=== PATIENT | male | born 1985 | race Caucasian/White ===

== ENCOUNTER → 2017-04-08 | Outpatient (CLI) | payer OTHER ==
[~2017-04-08] MED LIST: GASTROGRAFIN SOLUTION 30ML (Q9963) As Ordered; ISOVUE-370 76% 100ML VIAL (Q9967) As Ordered
== END ==
LOC: M RAD 08:59
DX: Z85.47 Personal history of malignant neoplasm of testis (principal)
CPT/HCPCS: Q9963

== ENCOUNTER → 2018-04-26 | Outpatient (CLI) | payer OTHER ==
[~2018-04-26] MED LIST changes: -GASTROGRAFIN SOLUTION 30ML (Q9963) As Ordered; -ISOVUE-370 76% 100ML VIAL (Q9967) As Ordered; +ISOVUE-370 76% 100ML VIAL (Q9967) As Ordered ONE
--- NOTE | 2018-04-27 08:34 | REP ---
Clinical: History of testicular cancer for follow up and restaging. Comparison: 04/08/2017. Technique: Axial contrast enhanced images of the abdomen and pelvis using 100 ml Isovue 370 intravenous contrast material with precontrast and delayed images of the abdomen as well as coronal and sagittal re-formations. Findings: Lung bases are clear. Visualized heart and pericardium are normal. Liver, spleen, pancreas, gallbladder, bilateral adrenal glands and kidneys are normal. The enteric system is without obstruction or acute inflammatory process. Few scattered sigmoid diverticula noted without acute diverticulitis. Normal terminal ileum and appendix are identified in the right lower quadrant. Scattered mildly prominent mesenteric lymph nodes are nonspecific. Pelvis demonstrates partially collapsed normal bladder and age appropriate prostate/seminal vesicles. No pelvic fluid or ascites. No obvious retroperitoneal adenopathy. Abdominal aorta and vasculature appears normal. Musculoskeletal structures are intact without focal osseous abnormality. Impression: No acute abdominopelvic pathology appreciated. Few scattered sigmoid diverticula without acute diverticulitis. Mildly prominent mesenteric lymph nodes are nonspecific and similar to prior examination. No ascites, significant adenopathy, or focal inflammatory changes noted. Electronically Signed by Geronimo Martinez MD 04/27/2018 08:25 A
== END ==
LOC: M RAD 08:43
PROVIDERS: ATTEND Nurse Practitioner Family
DX: C62.90 Malignant neoplasm of unspecified testis, unspecified whether descended or undescended (principal); K57.30 Diverticulosis of large intestine without perforation or abscess without bleeding
CPT/HCPCS: 74178; Q9967

== ENCOUNTER 2018-05-06 20:49 | Emergency (ER) | payer OTHER ==
[~2018-05-06] VITALS: Ht 182.9 cm; Wt 109.1 kg
[2018-05-06] MEDS ORDERED: PROAAER10 (21:02)
[2018-05-06] MEDS ORDERED: GUAI100S8 (21:02)
[2018-05-06] MEDS ORDERED: NAPR-885 (21:02)
[2018-05-06] MEDS ORDERED: [UNRECOGNIZED DRUG - CODE] (21:02)
[2018-05-06] MEDS ORDERED: SORE15LO (21:02)
[2018-05-06] MEDS ORDERED: [UNRECOGNIZED DRUG - OTHER] (21:02)
[2018-05-06] MEDS ORDERED: BENZ200C70 PO (22:54)
[2018-05-06] MEDS ORDERED: ZITHTAB PO (22:54)
[2018-05-06] MEDS ORDERED: AFRI0.0511 (22:54)
[2018-05-06] MEDS ORDERED: CEFU50TA PO (22:54)
[2018-05-06] MEDS ORDERED: BENZONATATE 100 MG CAP PO ONE (23:00)
[2018-05-06] MEDS ORDERED: CEFUROXIME 500 MG TAB PO ONE (23:00)
[2018-05-06] MEDS ORDERED: AZITHROMYCIN 250 MG TAB PO ONE (23:00)
[2018-05-06 23:11] VITALS: BP 130/78
--- NOTE | 2018-05-07 04:03 | REP ---
Clinical: Cough and chills . Comparison: 06/01/2014 . Technique: PA and lateral. Findings: The mediastinum and cardiac silhouette are normal. The lung gallegos are clear and without acute consolidation, effusion, or pneumothorax. The skeletal structures are intact and normal. Impression: 1. No focal consolidation. Electronically Signed by Geronimo Martinez MD 05/07/2018 03:55 A
== END 2018-05-06 23:10 | disposition home or self-care (01) ==
LOC: M ED 20:49
DX: J18.1 Lobar pneumonia, unspecified organism (principal); Z79.899 Other long term (current) drug therapy

== ENCOUNTER 2019-03-24 22:03 | Emergency (ER) | payer OTHER ==
[~2019-03-24] VITALS: Ht 182.9 cm; Wt 100.0 kg
[~2019-03-24 22:03] MED LIST changes: +AFRI0.0511; +BENZ200C70 PO; +CEFU50TA PO; +GUAI100S51; -ISOVUE-370 76% 100ML VIAL (Q9967) As Ordered ONE; +NAPR-885; +PROAAER10; +SORE15LO; +ZITHTAB PO; +[UNRECOGNIZED DRUG - CODE]; +[UNRECOGNIZED DRUG - OTHER]
[2019-03-24] MEDS ORDERED: DULO1CAP4 (22:08)
[2019-03-24] MEDS ORDERED: GABA600T4 (22:08)
[2019-03-24] MEDS ORDERED: TIZA4TAB4 (22:08)
[2019-03-24] MEDS ORDERED: NS 1,000 ML IV ONE (22:30)
[2019-03-24] MEDS ORDERED: ONDANSETRON 4MG/2ML VIAL (J2405) IV ONE (22:30)
[2019-03-24] MEDS ORDERED: ACETAMINOPHEN TAB 650MG DOSE (2X325MG) PO ONE (22:30)
[2019-03-24 22:52] LABS: BASO # 0.1 10^3/uL (0.0-0.2); BASO % 0.4 % (0.0-1.0); EOS % 0.2 % (0.0-3.0); HEMATOCRIT 40.3 % (42.0-52.0); HEMOGLOBIN 13.6 g/dl (13.5-17.5); LYMPH # 1.5 10^3/uL (1.5-5.0); LYMPH % 11.4 % (24.0-44.0); MEAN CORPUSCULAR HEMOGLOBIN 29.7 pg (27.0-33.0); MEAN CORPUSCULAR HGB CONC 33.7 g/dl (32.0-36.5); MONO # 1.5 10^3/uL (0.0-0.8); MONO % 11.1 % (0.0-5.0); NEUTROPHILS # 10.1 10^3/uL (1.5-8.5); NEUTROPHILS % 76.5 % (36.0-66.0); PLATELET COUNT, AUTOMATED 241 10^3/uL (150-450); RED BLOOD COUNT 4.58 10^6/uL (4.30-6.10); WHITE BLOOD COUNT 13.2 10^3/uL (4.0-10.0)
--- NOTE | 2019-03-24 23:04 | ECGEPIP ---
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
[2019-03-24 23:23] LABS: ALT/SGPT 50 U/L (12-78); BILIRUBIN,DIRECT < 0.1 MG/DL (0.0-0.2); BILIRUBIN,TOTAL 0.5 MG/DL (0.2-1.0); BLOOD UREA NITROGEN 18 MG/DL (7-18); CALCIUM LEVEL 8.9 MG/DL (8.5-10.1); CARBON DIOXIDE LEVEL 25 MEQ/L (21-32); CHLORIDE LEVEL 104 MEQ/L (98-107); CK-MB VALUE MASS < 1.0 NG/ML (<3.6); CPK CREATINE PHOSPHOKINASE 196 U/L (39-308); CREATININE FOR GFR 1.33 MG/DL (0.70-1.30); GLOMERULAR FILTRATION RATE > 60.0 (>60); GLUCOSE, FASTING 85 MG/DL (70-100); INFLUENZA A AMPLIFICATION NEGATIVE (NEGATIVE); INFLUENZA B AMPLIFICATION NEGATIVE (NEGATIVE); LIPASE 77 U/L (73-393); MB/CK RELATIVE INDEX 0.51 (< OR =4); POTASSIUM SERUM 4.2 MEQ/L (3.5-5.1); SODIUM LEVEL 138 MEQ/L (136-145); TOTAL PROTEIN 7.2 GM/DL (6.4-8.2); TROPONIN I < 0.02 NG/ML (< 0.10)
[2019-03-25 02:42] LABS: AMPHETAMINES LEVEL URINE NEGATIVE (NEGATIVE); BARBITURATES URINE NEGATIVE (NEGATIVE); BENZODIAZEPINES URINE NEGATIVE (NEGATIVE); CANNABINOIDS URINE NEGATIVE (NEGATIVE); COCAINE METABOLITE URINE NEGATIVE (NEGATIVE); METHADONE URINE NEGATIVE (NEGATIVE); OPIATES URINE NEGATIVE (NEGATIVE); PHENCYCLIDINE URINE NEGATIVE (NEGATIVE)
[2019-03-25] MEDS ORDERED: ONDA4TAB6 PO (05:00)
[2019-03-25 05:01] VITALS: BP 114/60
--- NOTE | 2019-03-25 09:55 | REP ---
REASON: Chest pain. FINDINGS: The superior mediastinal structures are midline. The cardiac silhouette is unremarkable in size, shape, and position. The diaphragmatic surfaces of the lungs are regular, and the costophrenic angles are clear. The pulmonary gallegos are clear. The imaged osseous structures are intact. IMPRESSION: There is no acute cardiopulmonary disease. Electronically Signed by Nii Magdaleno DO 03/25/2019 10:22 A
== END 2019-03-25 05:24 | disposition home or self-care (01) ==
LOC: M ED 22:03
DX: K52.9 Noninfective gastroenteritis and colitis, unspecified (principal); M54.9 Dorsalgia, unspecified
CPT/HCPCS: 71046; 80048; 80076; 80307; 81001; 82550; 82553; 83690; 84484; 85025; 85379; 87502; 93005; 93041; 96361; 96374; 99285; J2405

== ENCOUNTER 2019-10-23 11:31 | Emergency (ER) | payer OTHER ==
[~2019-10-23] VITALS: Ht 182.9 cm; Wt 113.2 kg
[~2019-10-23 11:31] MED LIST changes: +DULO1CAP4; +GABA600T4 PO; +ONDA4TAB6 PO; +TIZA4TAB4
[2019-10-23 12:02] LABS: BASO % 0.4 % (0.0-1.0); EOS # 0.1 10^3/uL (0.0-0.5); EOS % 1.3 % (0.0-3.0); HEMATOCRIT 42.3 % (42.0-52.0); HEMOGLOBIN 14.4 g/dl (13.5-17.5); LYMPH # 2.4 10^3/uL (1.5-5.0); LYMPH % 26.1 % (24.0-44.0); MEAN CORPUSCULAR HEMOGLOBIN 29.8 pg (27.0-33.0); MEAN CORPUSCULAR VOLUME 87.6 fl (80.0-96.0); MONO # 0.8 10^3/uL (0.0-0.8); MONO % 8.7 % (0.0-5.0); NEUTROPHILS # 5.8 10^3/uL (1.5-8.5); NEUTROPHILS % 63.2 % (36.0-66.0); PLATELET COUNT, AUTOMATED 264 10^3/uL (150-450); RED BLOOD COUNT 4.83 10^6/uL (4.30-6.10); WHITE BLOOD COUNT 9.1 10^3/uL (4.0-10.0)
[2019-10-23 12:29] LABS: ALBUMIN 4.2 GM/DL (3.2-5.2); ALT/SGPT 40 U/L (12-78); BILIRUBIN,DIRECT < 0.1 MG/DL (0.0-0.2); BILIRUBIN,TOTAL 0.4 MG/DL (0.2-1.0); BLOOD UREA NITROGEN 12 MG/DL (7-18); CALCIUM LEVEL 9.4 MG/DL (8.5-10.1); CARBON DIOXIDE LEVEL 28 MEQ/L (21-32); CHLORIDE LEVEL 106 MEQ/L (98-107); CREATININE FOR GFR 1.15 MG/DL (0.70-1.30); GLOMERULAR FILTRATION RATE > 60.0 (>60); GLUCOSE, FASTING 86 MG/DL (70-100); LIPASE 90 U/L (73-393); POTASSIUM SERUM 3.8 MEQ/L (3.5-5.1); SODIUM LEVEL 138 MEQ/L (136-145); TOTAL PROTEIN 7.6 GM/DL (6.4-8.2)
[2019-10-23 12:48] LABS: BILIRUBIN, URINE MANUAL NEGATIVE (NEGATIVE); GLUCOSE, URINE (UA) MANUAL NEGATIVE (NEGATIVE); KETONE, URINE MANUAL NEGATIVE (NEGATIVE); UROBILINOGEN, URINE MANUAL NORMAL (NORMAL)
[2019-10-23] MEDS ORDERED: ISOVUE-370 76% 100ML VIAL As Ordered ONE (13:06)
[2019-10-23] MEDS ORDERED: NS 1,000 ML IV ONE (13:15)
[2019-10-23] MEDS ORDERED: MORPHINE 4 MG/ML 1ML VIAL/SYRINGE (J2270) IV ONE (13:15)
[2019-10-23] MEDS ORDERED: ONDANSETRON 4MG/2ML VIAL IV ONE (13:15)
--- NOTE | 2019-10-23 13:33 | REP ---
Clinical: Abdominal pain. Technique: Axial contrast enhanced images from the lung bases to the pubic symphysis using 100 ml Isovue 370 intravenous contrast material with coronal and sagittal re-formations. Comparison: 04/26/2018. Findings: Lung bases are clear. Visualized heart and pericardium normal. Liver, spleen, pancreas, gallbladder, bilateral adrenal glands and kidneys are normal. The enteric system is without obstruction or acute inflammatory process. Normal terminal ileum and appendix are identified in the right lower quadrant. Few scattered sigmoid diverticula noted without acute diverticulitis. Pelvis demonstrates normal bladder and age appropriate prostate/seminal vesicles. No ascites. No free air. No adenopathy. Abdominal aorta without aneurysm or dissection. Skeletal structures are intact. Impression: No acute abdominopelvic pathology appreciated. Electronically Signed by Geronimo Martinez MD 10/23/2019 01:24 P
--- NOTE | 2019-10-23 14:05 | REP ---
Clinical: Right upper quadrant pain. Technique: Real time dove scale ultrasound examination using curved array transducer. Findings: Liver and pancreas are normal in contour, size, echogenicity without focal hepatic or pancreatic lesion identified. Gallbladder is normal and without gallstones, wall thickening, or pericholecystic fluid. No biliary ductal dilatation is appreciated and the common bile duct measures 3.5 mm diameter. Right kidney is normal in reniform shape without hydronephrosis and measures 12.1 x 4.9 x 4.9 cm. No ascites in the visualized right upper quadrant. Impression: Normal right upper quadrant ultrasound. Electronically Signed by Geronimo Martinez MD 10/23/2019 01:57 P
[2019-10-23] MEDS ORDERED: GI COCKTAIL 50ML BTL(HYOSCYAMINE/MAALOX/LIDOCAINE VISCOUS)(1:3:1) PO ONE (14:15)
[2019-10-23 14:25] LABS: CPK CREATINE PHOSPHOKINASE 163 U/L (39-308); MB/CK RELATIVE INDEX 0.61 (< OR =4); TROPONIN I < 0.02 NG/ML (< 0.10)
[2019-10-23] MEDS ORDERED: KETOROLAC 30 MG/ML 1ML VIAL IV ONE (15:30)
[2019-10-23 15:55] LABS: CK-MB VALUE MASS < 1.0 NG/ML (<3.6); CPK CREATINE PHOSPHOKINASE 145 U/L (39-308); MB/CK RELATIVE INDEX 0.69 (< OR =4); TROPONIN I < 0.02 NG/ML (< 0.10)
[2019-10-23] MEDS ORDERED: PANT40TA29 PO (15:58)
[2019-10-23 16:11] VITALS: BP 121/66
--- NOTE | 2019-10-24 07:50 | ECGEPIP ---
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
[2019-12-15] MEDS ORDERED: GABA-843 PO (08:04)
== END 2019-10-23 16:35 | disposition home or self-care (01) ==
LOC: M ED 11:31
DX: R10.84 Generalized abdominal pain (principal); R11.0 Nausea; R19.7 Diarrhea, unspecified; R94.31 Abnormal electrocardiogram [ECG] [EKG]; G89.29 Other chronic pain; M54.5 Low back pain; C62.90 Malignant neoplasm of unspecified testis, unspecified whether descended or undescended; F17.220 Nicotine dependence, chewing tobacco, uncomplicated; Z79.899 Other long term (current) drug therapy
CPT/HCPCS: 74177; 76705; 80048; 80076; 82550; 82553; 83605; 83690; 84484; 85025; 93005; 96361; 96374; 96375; 99284; J1885; J2270; J2405; Q9967

== ENCOUNTER 2019-12-18 11:35 | Day surgery (SDC) | payer OTHER ==
[~2019-12-18] VITALS: Ht 182.9 cm; Wt 110.7 kg
[~2019-12-18 11:35] MED LIST changes: +GABA-843 PO; +NS 1,000 ML IV ONE; +PANT40TA29 PO
[2019-12-18] MEDS ORDERED: propofoL 200 MG/20 ML VIAL As Ordered ONE (12:30)
[2019-12-18] MEDS ORDERED: LIDOCAINE 2% 100MG/5ML SDV (FOR ANES.) As Ordered ONE (12:30)
--- NOTE | 2019-12-18 13:30 | ROOR ---
Patient Name: Baljit Robbins Procedure Date: 12/18/2019 1:04 PM Date of : 1985 Age: 34 Room: [facility] Gender: Male Note Status: Finalized Procedure: Total Colonoscopy to Cecum + Cold Snare Polypectomy + Hemoclips + ileoscopy Indications: Lower abdominal pain, Clinically significant diarrhea of unexplained origin, Rectal bleeding Providers: Tj Thapa MD Referring MD: LYNSEY LACY MD Requesting Provider: Medicines: Monitored Anesthesia Care Complications: No immediate complications. Procedure: Pre-Anesthesia Assessment: - The heart rate, respiratory rate, oxygen saturations, blood pressure, adequacy of pulmonary ventilation, and response to care were monitored throughout the procedure. The Colonoscope was introduced through the anus and advanced to the terminal ileum, with identification of the appendiceal orifice and IC valve. The colonoscopy was performed without difficulty. The patient tolerated the procedure well. The quality of the bowel preparation was excellent. Findings: The perianal and digital rectal examinations were normal. Non-bleeding internal hemorrhoids were found during retroflexion. The hemorrhoids were small and Grade I (internal hemorrhoids that do not prolapse). A medium polyp was found at 25 cm proximal to the anus. The polyp was pedunculated. The polyp was removed with a cold snare. Resection and retrieval were complete. To prevent bleeding after the polypectomy, two hemostatic clips were successfully placed (MR conditional). There was no bleeding at the end of the procedure. The terminal ileum appeared normal. Biopsies for histology were taken with a cold forceps from the cecum, ascending colon, transverse colon, descending colon and rectosigmoid colon for evaluation of microscopic colitis. The exam was otherwise without abnormality on direct and retroflexion views. Impression: - Non-bleeding internal hemorrhoids. - One medium polyp at 25 cm proximal to the anus, removed with a cold snare. Resected and retrieved. Clips (MR conditional) were placed. - The examined portion of the ileum was normal. - The examination was otherwise normal on direct and retroflexion views. - Biopsies were taken with a cold forceps from the cecum, ascending colon, transverse colon, descending colon and rectosigmoid colon for evaluation of microscopic colitis. - The exam was otherwise normal to the cecum. Recommendation: - Patient has a contact number available for emergencies. The signs and symptoms of potential delayed complications were discussed with the patient. Return to normal activities tomorrow. Written discharge instructions were provided to the patient. - High fiber diet. - Discharge patient to home. - Continue present medications. - Await pathology results. - Telephone GI clinic for pathology results in 1 week. - Repeat colonoscopy for surveillance based on pathology results. - Return to referring physician. - The findings and recommendations were discussed with the patient. Tj Thapa MD Tj Thapa MD 12/18/2019 1:30:13 PM Electronically signed by Tj Thapa MD Number of Addenda: 0 Note Initiated On: 12/18/2019 1:04 PM Estimated Blood Loss: Estimated blood loss: none.
[2019-12-18 13:55] VITALS: BP 128/75
== END 2019-12-18 13:58 | disposition home or self-care (01) ==
LOC: M OPP 11:35
PROVIDERS: ATTEND Internal Medicine Gastroenterology
DX: K63.5 Polyp of colon (principal); K64.0 First degree hemorrhoids; R10.30 Lower abdominal pain, unspecified; R19.7 Diarrhea, unspecified; K62.5 Hemorrhage of anus and rectum; F17.220 Nicotine dependence, chewing tobacco, uncomplicated; Z79.899 Other long term (current) drug therapy

== ENCOUNTER 2020-06-08 15:08 | Emergency (ER) | payer OTHER ==
[~2020-06-08] VITALS: Ht 175.3 cm; Wt 113.2 kg
[~2020-06-08 15:08] MED LIST changes: +GABA-282 PO; -GABA-843 PO; -NS 1,000 ML IV ONE
--- NOTE | 2020-06-08 15:56 | REP ---
INDICATION: Trauma COMPARISON: 03/24/2019 TECHNIQUE: Portable AP view of the chest FINDINGS: The mediastinum and cardiac silhouette are stable and within normal limits for portable technique. The lung gallegos are clear without acute consolidation, effusion, or pneumothorax. Skeletal structures are intact. IMPRESSION: No acute cardiopulmonary process appreciated. <Electronically signed by Geronimo Martinez > 06/08/20 [id number]
[2020-06-08] MEDS ORDERED: ONDANSETRON 4MG/2ML VIAL IV ONE (16:00)
[2020-06-08] MEDS ORDERED: MORPHINE 4 MG/ML 1ML VIAL/SYRINGE (J2270) IV ONE ×2 (16:00→17:35)
[2020-06-08] MEDS ORDERED: ISOVUE-370 76% 100ML VIAL As Ordered ONE (16:12)
[2020-06-08 16:13] LABS: BASO # 0.1 10^3/uL (0.0-0.2); BASO % 0.4 % (0.0-1.0); EOS # 0.1 10^3/uL (0.0-0.5); EOS % 0.9 % (0.0-3.0); HEMATOCRIT 41.9 % (42.0-52.0); HEMOGLOBIN 13.9 g/dl (13.5-17.5); LYMPH # 1.7 10^3/uL (1.5-5.0); LYMPH % 13.1 % (24.0-44.0); MEAN CORPUSCULAR HEMOGLOBIN 29.3 pg (27.0-33.0); MEAN CORPUSCULAR HGB CONC 33.2 g/dl (32.0-36.5); MEAN CORPUSCULAR VOLUME 88.4 fl (80.0-96.0); MONO % 7.5 % (2.0-8.0); NEUTROPHILS # 9.9 10^3/uL (1.5-8.5); NEUTROPHILS % 77.7 % (36.0-66.0); PLATELET COUNT, AUTOMATED 322 10^3/uL (150-450); RED BLOOD COUNT 4.74 10^6/uL (4.30-6.10); WHITE BLOOD COUNT 12.7 10^3/uL (4.0-10.0)
[2020-06-08 16:23] LABS: INR 0.92; PARTIAL THROMBOPLASTIN TIME 27.6 SECONDS (24.2-38.5); PROTHROMBIN TIME 12.6 SECONDS (12.5-14.3)
[2020-06-08 16:38] LABS: ALT/SGPT 26 U/L (12-78); AMYLASE 51 U/L (25-115); BILIRUBIN,DIRECT 0.1 MG/DL (0.0-0.2); BILIRUBIN,TOTAL 0.5 MG/DL (0.2-1.0); BLOOD UREA NITROGEN 17 MG/DL (7-18); CALCIUM LEVEL 9.7 MG/DL (8.5-10.1); CARBON DIOXIDE LEVEL 25 MEQ/L (21-32); CHLORIDE LEVEL 104 MEQ/L (98-107); GLOMERULAR FILTRATION RATE > 60.0 (>60); GLUCOSE, FASTING 86 MG/DL (70-100); POTASSIUM SERUM 4.1 MEQ/L (3.5-5.1); SODIUM LEVEL 136 MEQ/L (136-145); TOTAL PROTEIN 7.8 GM/DL (6.4-8.2)
[2020-06-08 16:39] LABS: ALBUMIN 4.3 GM/DL (3.2-5.2); LIPASE 91 U/L (73-393)
--- NOTE | 2020-06-08 16:46 | ECGEPIP ---
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
--- NOTE | 2020-06-08 16:46 | REP ---
INDICATION: TRAUMA/LOC COMPARISON: 06/14/2014 TECHNIQUE: Axial noncontrast images from the skull base to the vertex with coronal reformations. This CT examination was performed using the following dose reduction techniques: Automated exposure control, adjustment of mA and/or kv according to the patient's size, and use of iterative reconstruction technique. FINDINGS: The ventricles, sulci, and cisterns are normal in position and appearance. Knox-white differentiation is maintained. No acute intracranial hemorrhage, mass/mass effect, pathology or trauma/injury. No evidence for acute infarction. No extra-axial fluid collection. Calvarium is intact. Paranasal sinuses and mastoid air cells are clear. IMPRESSION: Normal noncontrast head CT. No evidence for acute intracranial pathology or trauma/injury. <Electronically signed by Geronimo Martinez > 06/08/20 [id number]
--- NOTE | 2020-06-08 16:48 | REP ---
INDICATION: Trauma COMPARISON: None. TECHNIQUE: Axial noncontrast images from the skull base to the thoracic inlet with coronal and sagittal re-formations This CT examination was performed using the following dose reduction techniques: Automated exposure control, adjustment of mA and/or kv according to the patient's size, and use of iterative reconstruction technique. FINDINGS: Straightening of normal lordosis is likely positional. Normal alignment is maintained. Cervical vertebral bodies including transverse processes and spinous processes are intact and there is no evidence for acute fracture / compression injury or subluxation. Spinal canal is patent. Posterior elements are intact. Paravertebral soft tissues are normal. IMPRESSION: Normal noncontrast cervical spine CT. No evidence for acute pathology or trauma/injury. <Electronically signed by Geronimo Martinez > 06/08/20 [id number]
--- NOTE | 2020-06-08 16:52 | REP ---
INDICATION: Trauma COMPARISON: None TECHNIQUE: Axial contrast enhanced images from the thoracic inlet to the upper abdomen using 100 ml Isovue 370 intravenous contrast material followed by CT of the abdomen and pelvis. This CT examination was performed using the following dose reduction techniques: Automated exposure control, adjustment of mA and/or kv according to the patient's size, and use of iterative reconstruction technique. FINDINGS: Bilateral lung gallegos are well aerated and clear. No consolidation/contusion, effusion, or pneumothorax. Tracheobronchial tree is patent. The mediastinum demonstrates normal thoracic aorta, pulmonary vasculature, and heart/pericardium. No evidence for mediastinal injury or hematoma. No significant adenopathy. There is a subtle nondisplaced fracture at the tip of the right scapular coracoid process. Remainder of the musculoskeletal structures appear intact. IMPRESSION: Normal contrast-enhanced chest CT. No acute mediastinal or pleuroparenchymal process. Fracture of the right scapular coracoid process. <Electronically signed by Geronimo Martinez > 06/08/20 [id number]
--- NOTE | 2020-06-08 16:54 | REP ---
INDICATION: Trauma. COMPARISON: 10/23/2019 TECHNIQUE: Axial contrast-enhanced images from the lung bases to the pubic symphysis using 100 cc Isovue 370 intravenous contrast material. Coronal and sagittal reformations obtained. This CT examination was performed using the following dose reduction techniques: Automated exposure control, adjustment of mA and/or kv according to the patient's size, and the use of iterative reconstruction technique. FINDINGS: There is no evidence for solid organ injury. Liver, spleen, pancreas, gallbladder, bilateral adrenal glands and kidneys are normal. The enteric system including stomach, small, and large bowel appears normal. No evidence for obstruction or acute inflammatory process. Normal terminal ileum and appendix are identified in the right lower quadrant. Pelvis demonstrates normal bladder and age-appropriate prostate/seminal vesicles. No ascites. No free air. No intraperitoneal or retroperitoneal adenopathy. Abdominopelvic vascular structures appear intact and without evidence for vascular injury. Musculoskeletal structures are intact and without acute osseous abnormality. IMPRESSION: No acute abdominopelvic pathology or trauma/injury appreciated. <Electronically signed by Geronimo Martinez > 06/08/20 [id number]
--- NOTE | 2020-06-08 16:58 | REP ---
INDICATION: ro dissection. COMPARISON: None. TECHNIQUE: Axial contrast-enhanced images were obtained from the thoracic inlet to the skull base with coronal and sagittal reformations using 100 cc Isovue 370 intravenous contrast material (followed by contrast enhanced CT of the chest and abdomen/pelvis). Maximal intensity projection and multiplanar re-formation images along with 3-D rendered imaging of the arterial vasculature. This CT examination was performed using the following dose reduction techniques: Automated exposure control, adjustment of mA and/or kv according to the patient's size, and the use of iterative reconstruction technique. FINDINGS: The common carotid arteries, carotid bulbs and visualized portions of the external and the internal carotid arteries are normal. There is no evidence for dissection or traumatic injury/laceration. The vertebrobasilar system to the skull base is patent, symmetric and without injury. There are no atherosclerotic lesions, areas of significant stenosis or occlusion identified. No obvious vascular abnormality noted. IMPRESSION: Normal CT angiography of the neck No evidence for traumatic dissection or laceration. <Electronically signed by Geronimo Martinez > 06/08/20 [id number]
--- NOTE | 2020-06-08 17:20 | REP ---
INDICATION: snowboard accident COMPARISON: None. TECHNIQUE: AP, lateral, bilateral oblique views right foot. FINDINGS: The osseous structures and joint spaces are intact and normal. There is no evidence for acute fracture or dislocation. Surrounding soft tissues are unremarkable. No subcutaneous emphysema or radiodense foreign body. IMPRESSION: . No acute fracture or dislocation. <Electronically signed by Geronimo Martinez > 06/08/20 [id number]
--- NOTE | 2020-06-08 17:21 | REP ---
INDICATION: snowboard accident COMPARISON: None. TECHNIQUE: AP, lateral, bilateral oblique views. FINDINGS: No acute fracture or dislocation. Skeletal structures and joint spaces are intact and normal. Ankle mortise appears stable. No subcutaneous emphysema or radiodense foreign body. IMPRESSION: Normal right ankle radiograph series. No acute fracture or dislocation. <Electronically signed by Geronimo Martinez > 06/08/20 [id number]
[2020-06-08 17:37] LABS: RSV AMPLIFICATION NEGATIVE (NEGATIVE)
--- NOTE | 2020-06-08 20:53 | REPVR ---
PROCEDURE INFORMATION: Exam: MR Cervical Spine Without Contrast Exam date and time: 06/08/2020 8:40 PM Age: 34 years old Clinical indication: Pain and injury or trauma; Fall; Blunt trauma; Neck pain; Injury date: 06/08/20; Injury details: PT was snowboarding and fell onto his head, PT states he was told his RT scapula was broken, pain persists in neck, and RT arm cts on pacs; Additional info: Neck pain w right hand numbness TECHNIQUE: Imaging protocol: Multiplanar magnetic resonance images of the cervical spine without contrast. COMPARISON: CT Spine,cervical w/o contrast 06/08/2020 4:13 PM FINDINGS: Vertebrae: Unremarkable. Spinal cord: See "C5-C6" finding. C2-C3: No significant disc disease. No significant spinal stenosis. C3-C4: Left-sided foraminal disc protrusion at C3-C4 associated with moderate foraminal stenosis on the left. C4-C5: No significant disc disease. No significant spinal stenosis. C5-C6: Bulging annulus C5-C6. No neural compromise or cord impingement. Moderate bilateral foraminal stenosis. C6-C7: No significant disc disease. No significant spinal stenosis. C7-T1: No significant disc disease. No significant spinal stenosis. Soft tissues: Unremarkable. Vertebral arteries: Expected flow voids in the vertebral arteries. IMPRESSION: 1. Bulging annulus C5-C6. No neural compromise or cord impingement. Moderate bilateral foraminal stenosis. 2. Left-sided foraminal disc protrusion at C3-C4 associated with moderate foraminal stenosis on the left. Electronically signed by: Tod Calles On 06/08/2020 20:53:45 PM
[2020-06-08] MEDS: HYDROMORPHONE HCL 0.5 MG/ 0.5 ML SYRINGE (J1170 PER 1) IV PRN ×2 (21:19→22:39)
[2020-06-08] MEDS ORDERED: OXYCODONE/APAP 5MG/325MG(BULK FOR ED) 1 TABLET PO ONE (22:30)
[2020-06-08 22:55] VITALS: BP 167/87
--- NOTE | 2020-06-09 06:26 | ED PDOC ---
Post-Departure Follow-Up [facility] - dr dnog faxed formal report of mri c spine for fu Bob Ryan MD Jun 09, 2020 06:26
== END 2020-06-08 22:59 | disposition home or self-care (01) ==
LOC: M ED 15:08
DX: S42.101A Fracture of unspecified part of scapula, right shoulder, initial encounter for closed fracture (principal); S06.0X0A Concussion without loss of consciousness, initial encounter; T14.8XXA Other injury of unspecified body region, initial encounter; M50.80 Other cervical disc disorders, unspecified cervical region; M48.02 Spinal stenosis, cervical region; R20.2 Paresthesia of skin; W19.XXXA Unspecified fall, initial encounter; Y92.89 Other specified places as the place of occurrence of the external cause; Y93.23 Activity, snow (alpine) (downhill) skiing, snowboarding, sledding, tobogganing and snow tubing; Y99.9 Unspecified external cause status; F17.200 Nicotine dependence, unspecified, uncomplicated; Z79.899 Other long term (current) drug therapy
CPT/HCPCS: 70450; 70498; 71045; 71260; 72125; 72141; 73610; 73630; 74177; 80047; 80048; 80076; 82150; 83605; 83690; 85025; 85610; 85730; 86850; 86900; 86901; 87631; 93005; 93041; 94760; 96374; 96375; 96376; 99285; J1170; J2270; J2405; Q9967

== ENCOUNTER 2020-11-08 19:20 | Emergency (ER) | payer OTHER ==
[~2020-11-08] VITALS: Ht 182.9 cm; Wt 107.3 kg
[~2020-11-08 19:20] MED LIST changes: +TIZA10TA; -TIZA4TAB4
[2020-11-08] MEDS ORDERED: AUGMENTIN 875 MG TAB PO ONE (22:45)
[2020-11-08] MEDS ORDERED: BACITRACIN OINTMENT 30GM TUBE TOP STA (22:45)
[2020-11-08] MEDS ORDERED: AUGM875T28 PO (23:15)
[2020-11-08 23:19] VITALS: BP 129/65
== END 2020-11-08 23:20 | disposition home or self-care (01) ==
LOC: M ED 19:20
DX: S61.452A Open bite of left hand, initial encounter (principal); S61.432A Puncture wound without foreign body of left hand, initial encounter; W54.0XXA Bitten by dog, initial encounter; Y92.410 Unspecified street and highway as the place of occurrence of the external cause; Y93.89 Activity, other specified; Y99.9 Unspecified external cause status; Z79.899 Other long term (current) drug therapy

== ENCOUNTER → 2021-09-11 | Outpatient (CLI) | payer OTHER ==
[~2021-09-11] MED LIST changes: +AUGM875T28 PO
== END ==
LOC: M PLAIMG 14:23
PROVIDERS: ATTEND Nurse Practitioner Family
DX: M54.6 Pain in thoracic spine (principal)

== ENCOUNTER → 2022-01-05 | Outpatient (REF) | payer OTHER ==
[~2022-01-05] MED LIST changes: +BENZ1LOZ2; -SORE15LO
== END ==
LOC: M LAB REF 16:25
PROVIDERS: ATTEND Physician Assistant Medical
DX: R07.0 Pain in throat (principal)

== ENCOUNTER → 2022-04-24 | Outpatient (CLI) | payer OTHER | LOC: M RAD 09:34 | PROVIDERS: ATTEND Physical Medicine & Rehabilitation | DX: M54.12 Radiculopathy, cervical region (principal) | CPT/HCPCS: 78306; A9503 ==

== ENCOUNTER → 2022-04-29 | Outpatient (REF) | payer OTHER | LOC: M SMT 13:02 | PROVIDERS: ATTEND Urology | DX: Z30.2 Encounter for sterilization (principal) ==

== ENCOUNTER 2023-06-30 09:17 | Observation (INO) | payer OTHER ==
[~2023-06-30] VITALS: Ht 182.9 cm; Wt 111.9 kg
[~2023-06-30 09:17] MED LIST changes: -BENZ1LOZ2; +SORE15LO
[2023-06-30] MEDS ORDERED: ISOVUE-370 76% 100ML VIAL As Ordered ONE (10:06)
[2023-06-30 10:26] LABS: BASO # 0.1 10^3/uL (0.0-0.2); BASO % 0.7 % (0.0-1.0); EOS # 0.2 10^3/uL (0.0-0.5); EOS % 2.1 % (0.0-3.0); HEMATOCRIT 42.9 % (42.0-52.0); HEMOGLOBIN 14.3 g/dl (13.5-17.5); LYMPH # 2.3 10^3/uL (1.5-5.0); LYMPH % 25.7 % (24.0-44.0); MEAN CORPUSCULAR HEMOGLOBIN 29.2 pg (27.0-33.0); MEAN CORPUSCULAR HGB CONC 33.3 g/dl (32.0-36.5); MEAN CORPUSCULAR VOLUME 87.7 fl (80.0-96.0); MONO # 0.7 10^3/uL (0.0-0.8); MONO % 7.8 % (2.0-8.0); NEUTROPHILS # 5.8 10^3/uL (1.5-8.5); NEUTROPHILS % 63.5 % (36.0-66.0); PLATELET COUNT, AUTOMATED 328 10^3/uL (150-450); RED BLOOD COUNT 4.89 10^6/uL (4.30-6.10); WHITE BLOOD COUNT 9.1 10^3/uL (4.0-10.0)
[2023-06-30 10:41] VITALS: BP 126/62; TEMP 97.7; O2SAT 98
[2023-06-30 10:41] LABS: PARTIAL THROMBOPLASTIN TIME 27.9 SECONDS (24.8-34.2); PROTHROMBIN TIME 12.9 SECONDS (12.5-14.5)
[2023-06-30 11:00] VITALS: BP 128/59; O2SAT 97
[2023-06-30 11:15] VITALS: BP 132/62; O2SAT 98
[2023-06-30] MEDS: ACETAMINOPHEN 500 MG TAB PO ONE (11:41)
[2023-06-30 11:43] LABS: BLOOD UREA NITROGEN 20 MG/DL (9-23); CALCIUM LEVEL 9.9 MG/DL (8.5-10.1); CARBON DIOXIDE LEVEL 26 MMOL/L (20-31); CHLORIDE LEVEL 106 MMOL/L (98-107); CK-MB VALUE MASS < 1.0 NG/ML (<3.6); CPK CREATINE PHOSPHOKINASE 143 U/L (46-171); CREATININE FOR GFR 0.98 MG/DL (0.70-1.30); GLOMERULAR FILTRATION RATE > 60.0 (>60); GLUCOSE, FASTING 94 MG/DL (60-100); MB/CK RELATIVE INDEX 0.69 (< OR =4); POTASSIUM SERUM 4.5 MMOL/L (3.5-5.1); SODIUM LEVEL 140 MMOL/L (136-145)
[2023-06-30] MEDS ORDERED: HOME MED LIST COMPLETE! XX SCH (12:30)
[2023-06-30] MEDS ORDERED: MOM 30ML SUSPENSION UDC PO PRN (14:30)
[2023-06-30 15:16] VITALS: BP 124/67; TEMP 98.1; O2SAT 94
[2023-06-30 15:45] LABS: CHOLESTEROL RISK RATIO 5.42 (<5); HDL CHOLESTEROL 36.7 MG/DL (>40); LDL CHOLESTEROL 134.1 MG/DL (<100); NON-HDL-C 162.3 MG/DL
[2023-06-30] MEDS: ENOXAPARIN 40MG/0.4ML SYRINGE (J1650 PER 10MG) SC SCH (15:51)
[2023-06-30] MEDS: ASPIRIN 81MG ENTERIC TABLET PO SCH (15:51)
[2023-06-30] MEDS: KETOROLAC 30 MG/ML 1ML VIAL IV ONE (15:52)
[2023-06-30] MEDS ORDERED: ACETAMINOPHEN TAB 650MG DOSE (2X325MG) PO PRN (16:00)
[2023-06-30 16:13] LABS: RSV AMPLIFICATION NEGATIVE (NEGATIVE)
[2023-06-30 17:17] LABS: HEMOGLOBIN A1c 5.1 % (4.0-6.0)
[2023-06-30] MEDS: DOCUSATE SODIUM 100MG CAPSULE PO SCH (20:02)
[2023-06-30] MEDS ORDERED: IBUPROFEN 400MG TAB PO PRN (20:45)
[2023-06-30] MEDS: ACETAMINOPHEN *IV* 1,000 MG in IV 1 EA IV ONE (21:15)
[2023-06-30 21:38] LABS: ALBUMIN 4.2 G/DL (3.2-5.2); BILIRUBIN,DIRECT 0.2 MG/DL (<0.4); BILIRUBIN,TOTAL 0.6 MG/DL (0.3-1.2); TOTAL PROTEIN 7.3 G/DL (5.7-8.2)
[2023-06-30 22:00] VITALS: BP 119/61; TEMP 98.2; O2SAT 96
[2023-07-01] MEDS: IBUPROFEN 800 MG TAB PO PRN (05:49)
[2023-07-01 06:00] VITALS: BP 105/54; TEMP 98.1; O2SAT 97
[2023-07-01 06:06] LABS: HEMATOCRIT 39.8 % (42.0-52.0); MEAN CORPUSCULAR HEMOGLOBIN 28.9 pg (27.0-33.0); MEAN CORPUSCULAR HGB CONC 32.7 g/dl (32.0-36.5); MEAN CORPUSCULAR VOLUME 88.4 fl (80.0-96.0); PLATELET COUNT, AUTOMATED 292 10^3/uL (150-450); WHITE BLOOD COUNT 6.6 10^3/uL (4.0-10.0)
[2023-07-01 06:33] LABS: BLOOD UREA NITROGEN 19 MG/DL (9-23); CALCIUM LEVEL 9.2 MG/DL (8.5-10.1); CARBON DIOXIDE LEVEL 27 MMOL/L (20-31); CHLORIDE LEVEL 108 MMOL/L (98-107); CREATININE FOR GFR 1.03 MG/DL (0.70-1.30); GLOMERULAR FILTRATION RATE > 60.0 (>60); GLUCOSE, FASTING 99 MG/DL (60-100); POTASSIUM SERUM 4.8 MMOL/L (3.5-5.1); SODIUM LEVEL 141 MMOL/L (136-145)
[2023-07-01] MEDS: SUMAtriptan SUCCINATE 25 MG TAB PO ONE (09:08)
[2023-07-01 09:10] VITALS: O2SAT 98
[2023-07-01] MEDS: MORPHINE 2 MG/ML 1ML VIAL IV ONE (09:10)
[2023-07-01] MEDS ORDERED: ACET-897 PO (09:47)
[2023-07-01] MEDS ORDERED: EXCETAB32 PO (09:47)
[2023-07-01] MEDS ORDERED: IBUP-1114 PO (09:47)
[2023-07-01] MEDS ORDERED: SUMA50TA2 PO (09:47)
[2023-07-01] MEDS: EXCEDRIN MIGRAINE TABLET PO PRN (10:20)
[2023-07-01] MEDS: KETOROLAC 30 MG/ML 1ML VIAL IV SCH (11:28)
[2023-07-01] MEDS: ACETAMINOPHEN 500 MG TAB PO ONE (11:29)
[2023-07-01] MEDS: EXCEDRIN MIGRAINE TABLET PO ONE (11:29)
[2023-07-01] MEDS ORDERED: ACETAMINOPHEN 500 MG TAB PO SCH (18:00)
[2023-07-08 10:03] LABS: DRVV SCREEN 40.1 SECONDS
[2023-07-08 10:12] LABS: PTT LUPUS TYPE ANTICOAG SCREEN 0.99 (0-1.20)
[2023-07-15 19:08] LABS: ANCA-ATYPICAL <1:20 titer (Neg:<1:20); ANTI THROMBIN 3 ANTIGEN IMMUNO 120 % (72-124); ANTI THROMBIN 3 FUNCT ACTIVITY 123 % (75-135); ANTINUCLEAR ANTIBODIES DIRECT Negative (Negative); CARDIOLIPIN IGA ANTIBODY <9 APL U/mL (0-11); CARDIOLIPIN IGG ANTIBODY <9 GPL U/mL (0-14); CARDIOLIPIN IGM ANTIBODY <9 MPL U/mL (0-12); CYTOPLASMIC NEUTROP AB ANCA-C <1:20 titer (Neg:<1:20); HOMOCYST(E)INE SERUM 11.8 umol/L (0.0-14.5); PERINUCLEAR AB ANCA-P <1:20 titer (Neg:<1:20); PROTEIN C ANTIGEN 108 % (60-150); PROTEIN S ANTIGEN FREE 153 % (61-136); PROTEIN S ANTIGEN TOTAL 141 % (60-150); SJOGREN'S ANTI SS-A <0.2 AI (0.0-0.9); SJOGREN'S ANTI SS-B <0.2 AI (0.0-0.9)
== END 2023-07-01 13:23 | disposition home or self-care (01) ==
LOC: M ED 09:17 → INTOOBSV 14:30 → M ED INP 14:30 → M MSPAV 15:20
PROVIDERS: ADMIT Student in an Organized Health Care Education/Training Program; ATTEND Student in an Organized Health Care Education/Training Program
DX: G43.B0 Ophthalmoplegic migraine, not intractable (principal); M54.50 Low back pain, unspecified; Z85.47 Personal history of malignant neoplasm of testis; Z79.899 Other long term (current) drug therapy; Z79.82 Long term (current) use of aspirin
CPT/HCPCS: 36415; 70450; 70496; 70498; 70544; 70551; 71045; 80047; 80048; 80061; 80076; 81240; 81241; 82550; 82553; 83036; 83090; 84484; 85025; 85027; 85300; 85301; 85302; 85305; 85306; 85610; 85652; 85730; 86037; 86038; 86140; 86147; 86850; 86900; 86901; 87631; 93005; 93041; 93306; 94760; 96372; 96374; 96375; 96376; 99285; G0378; J0131; J1100; J1650; J1885; Q9967